=== PATIENT | male | born 1955 | race Caucasian/White ===

== ENCOUNTER 2023-09-29 08:20 | Observation (INO) | payer OTHER ==
[2023-09-29] MEDS ORDERED: ACETAMINOPHEN INJECTION 100 ML IVPB ONE (10:56)
[2023-09-29] MEDS: SODIUM CHLORIDE 1,000 ML IV STA ×2 (11:01→15:01)
[2023-09-29] MEDS: ACETAMINOPHEN 1000 MG/100 ML BAG IVPB ONE (11:01)
[2023-09-29 12:08] LABS: HEMATOCRIT 45.7 % (35.4-49); HEMOGLOBIN 15.5 G/dL (11.7-16.9); MCH 29.6 pg (25.7-33.7); MCHC 33.8 g/dl (32.0-35.9); MEAN CELL VOLUME 87.6 fl (80-96); MEAN PLT VOLUME 9.9 fl (7.5-11.1); PLATELET COUNT 183.2 10^3/uL (134-434); RBC 5.22 10^6/uL (4.00-5.60); WHITE BLOOD COUNT 14.1 10^3/uL (4.0-10.8)
[2023-09-29 12:15] LABS: ALBUMIN 4.7 g/dl (3.4-5.0); BILIRUBIN,TOTAL 1.4 mg/dl (0.2-1); CALCIUM 10.3 mg/dl (8.5-10.1); CREATININE 1.7 mg/dl (0.6-1.3); TOT PROT 7.5 g/dl (6.4-8.2)
[2023-09-29 12:17] LABS: PLATELET ESTIMATE ADEQUATE
[2023-09-29 13:34] LABS: LACTIC ACID 3.3 mmol/L (0.4-2.0)
[2023-09-29] MEDS: morphine CARPU-JECT 2 MG/1 ML DISP.SYRIN IVPUSH ONE (13:38)
[2023-09-29] MEDS: PIPERACILLIN/TAZOB 3.375 GM 3.375 GM in DEXTROSE 5%-WATER - 50 ML IVPB ONE (15:01)
[2023-09-29] MEDS ORDERED: PIPERACILLIN/TAZOBACTAM 3.375 GM VIAL IVPB ONE (15:02)
[2023-09-29 16:33] VITALS: RESP 18
[2023-09-29 17:01] VITALS: BMI 27.0
[2023-09-29] MEDS: SODIUM CHLORIDE 1,000 ML IV SCH (17:24)
[2023-09-29] MEDS: ENOXAPARIN NA (PORCINE) 40 MG/0.4 ML DISP.SYRIN SQ SCH (17:24)
[2023-09-29] MEDS: PROBENECID 500 MG TABLET PO SCH (22:34)
[2023-09-29] MEDS: CEFTRIAXONE 1 GM in DEXTROSE 5%-WATER - 50 ML IVPB SCH (22:37)
[2023-09-30 08:10] LABS: HEMATOCRIT 38.2 % (35.4-49); HEMOGLOBIN 13.1 G/dL (11.7-16.9); MCH 30.3 pg (25.7-33.7); MCHC 34.2 g/dl (32.0-35.9); MEAN CELL VOLUME 88.8 fl (80-96); MEAN PLT VOLUME 9.7 fl (7.5-11.1); PLATELET COUNT 160.2 10^3/uL (134-434); RDW 13.4 % (11.9-15.9); WHITE BLOOD COUNT 13.5 10^3/uL (4.0-10.8)
[2023-09-30 08:47] LABS: ALBUMIN 3.8 g/dl (3.4-5.0); BILIRUBIN,TOTAL 0.8 mg/dl (0.2-1); CALCIUM 8.9 mg/dl (8.5-10.1); CREATININE 1.2 mg/dl (0.6-1.3); POTASSIUM 3.4 mmol/L (3.5-5.1)
[2023-09-30] MEDS: ACETAMINOPHEN 325 MG TABLET (FP) PO PRN (09:24)
[2023-09-30] MEDS: TAMSULOSIN HCL 0.4 MG CAP PO SCH (09:26)
[2023-09-30] MEDS ORDERED: traMADol HCL 50 MG TABLET PO PRN (09:57)
[2023-09-30] MEDS: POTASSIUM CHLORIDE TABS 20 MEQ TABLET.ER (FP) PO ONE (10:27)
[2023-09-30] MEDS: SODIUM CHLORIDE 1,000 ML IV SCH (10:28)
[2023-09-30] MEDS: MAGNESIUM OXIDE 400 MG TABLET (FP) PO ONE (13:36)
[2023-09-30 13:41] VITALS: BP 141/62; PULSE 57; TEMP 98.5
== END 2023-09-30 15:26 | disposition home or self-care (01) ==
LOC: FER 08:20 → FM/S 14:46 → UNDOADMOB 14:46
PROVIDERS: ADMIT Internal Medicine; ATTEND Nurse Practitioner Family
PROC: 0T9B70Z Drainage of Bladder with Drainage Device, Via Natural or Artificial Opening (ICD-10-PCS; principal; 2023-09-29)
PROC: 3E03329 Introduction of Other Anti-infective into Peripheral Vein, Percutaneous Approach (ICD-10-PCS; 2023-09-29)
PROC: 3E023GC Introduction of Other Therapeutic Substance into Muscle, Percutaneous Approach (ICD-10-PCS; 2023-09-29)
PROC: 3E033NZ Introduction of Analgesics, Hypnotics, Sedatives into Peripheral Vein, Percutaneous Approach (ICD-10-PCS; 2023-09-29)
PROC: 3E03329 Introduction of Other Anti-infective into Peripheral Vein, Percutaneous Approach (ICD-10-PCS; 2023-09-29)
PROC: 3E0337Z Introduction of Electrolytic and Water Balance Substance into Peripheral Vein, Percutaneous Approach (ICD-10-PCS; 2023-09-29)
DX: A41.9 Sepsis, unspecified organism (principal); R33.9 Retention of urine, unspecified; N17.9 Acute kidney failure, unspecified; E87.6 Hypokalemia; N40.0 Benign prostatic hyperplasia without lower urinary tract symptoms; E83.52 Hypercalcemia; I10 Essential (primary) hypertension; M10.9 Gout, unspecified; Z87.891 Personal history of nicotine dependence
CPT/HCPCS: 0241U-QW; 36415; 51702; 71045-TC-FY; 74176-TC; 80053; 81003; 81015; 83605; 83690; 83735; 85027; 87040; 87086; 96361; 96365; 96367; 96372; 96375; 99285-25; G0378; J0131

== ENCOUNTER 2023-11-23 08:04 | Emergency (ER) | payer OTHER ==
[2023-11-23 08:11] VITALS: BP 180/107; PULSE 87; RESP 20; TEMP 98.7; BMI 26.4
[2023-11-23] MEDS ORDERED: LIDOCAINE HCL 2% JELLY 10 ML CARTRIDGE ONE (08:17)
== END 2023-11-23 09:38 | disposition home or self-care (01) ==
LOC: FER 08:04
PROC: 0T2BX0Z Change Drainage Device in Bladder, External Approach (ICD-10-PCS; principal; 2023-11-23)
DX: R33.9 Retention of urine, unspecified (principal); R10.30 Lower abdominal pain, unspecified
CPT/HCPCS: 99282-25